=== PATIENT | male | born 1965 | race Caucasian/White ===

== ENCOUNTER 2016-12-12 01:28 | Emergency (ER) | payer OTHER ==
[~2016-12-12] VITALS: Ht 175.3 cm; Wt 95.5 kg
[~2016-12-12 01:28] MED LIST: AMLO10TA3 PO; ATOR80TA PO; CARV3.122 PO; CHOL100043 PO; FURO40TA4 PO; HYDR-3825 PO; HYDR-3940 PO; HYDR-656 PO; LISI-567 PO; NOVO7030I SUBQ; OMEP20CA11 PO; PARO30TA4 PO; PREG300C PO
[2016-12-12 01:31] VITALS: BP 105/64; PULSE 79; RESP 14; O2SAT 92
--- NOTE | 2016-12-12 01:36 | ED.REPORT ---
HPI-General Illness Date of Service Dec 12, 2016 ED Provider: Dr. Welsh Pt is a 51 year old male with a hx of type II DM and HTN presenting to the ED after an insulin overdose. He reports that he accidentally took too much insulin , 26 units twice. He forgot that he had taken his insulin and accidentally double dosed. Pt has been using insulin for the past 10 years. Denies any signs of infection. Nursing Notes Stated Complaint: TOOK TOO MUCH INSULIN Chief Complaint: General Complaint Nursing Notes Reviewed: Yes Allergies: Coded Allergies: No Known Allergies (Verified Allergy, Unknown, 03/16/15) Uncoded Allergies: SULFA (Allergy, Unknown, 12/12/16) Scheduled Amlodipine (Amlodipine) 10 Mg Tablet 10 MG PO DAILY Atorvastatin (Lipitor) 80 Mg Tablet 80 MG PO HS Carvedilol (Carvedilol) 3.125 Mg Tablet 3.125 MG PO BID Cholecalciferol (Vitamin D3) (Vitamin D) 1,000 Unit Tablet 4,000 UNIT PO DAILY Furosemide (Furosemide) 40 Mg Tablet 40 MG PO DAILY Hydralazine (Hydralazine) 50 Mg Tablet 50 MG PO BID Insulin Aspart (NovoLOG 70/30 U100 Insulin Vial) 100 Unit/Ml Vial 26 UNIT SUBQ HS Insulin Aspart (NovoLOG 70/30 U100 Insulin Vial) 100 Unit/Ml Vial 15 UNIT SUBQ AM Lisinopril (Lisinopril) 20 Mg Tablet 20 MG PO DAILY Omeprazole (Omeprazole) 20 Mg Capsule.dr 20 MG PO DAILY Paroxetine (Paroxetine) 30 Mg Tablet 30 MG PO DAILY Pregabalin (Lyrica) 300 Mg Capsule 300 MG PO BID Scheduled PRN Hydrocodone-Acetaminophen 7.5-325 mg (Hydrocodone-Acetaminophen 7.5-325 mg) 1 Each Tablet 1 TABLET PO QID PRN PRN For Pain hydrOXYzine Hcl (HydrOXYzine Hcl) 25 Mg Tablet 25 MG PO QID PRN PRN 00 General Time Seen by MD: 01:36 Chief Complaint Other (Accidental overdose) Hx Obtained From: Patient Arrived By: Walk-in Sudden in Onset?: Yes Onset Occurred: Just prior to arrival Symptom Duration: Since onset Caused by: Accidental Location: : Back Quality: Painful Severity: Current: Moderate Severity: Maximum: Moderate Recent Healthcare: No recent doctor visit, No recent hospitalization Similar Sx Previous: No Past Medical History Past Medical History Chronic back pain Reports: Diabetes mellitus, Hypertension Past Surgical History 18 screws in back Reports: Back/neck surgery Smoking History Current Every Day Smoker Social History Alcohol Use: Denies alcohol use Other Social History: Good social support Ambulatory Status Independent Review of Systems Full Review of Systems Constitutional: Denies: Fever GI: Denies: Nausea, Vomiting Musculoskeletal: Reports: Back pain Complete sys rev & neg: except as marked. Physical Exam Vital Signs Vital Signs Date Time Temp Pulse Resp B/P Pulse Ox O2 Delivery O2 Flow Rate FiO2 12/12/16 01:31 36.9 79 14 105/64 92 Room Air Initial VS: Reviewed Head / Eyes: Atraumatic, Normocephalic, PERRL ENT: Mucous membranes moist, Conjunctiva normal, No scleral icterus Respiratory: Breath sounds normal, Clear to auscultation, No respiratory distress Cardiovascular: Regular rate & rhythm, Heart sounds normal, Intact distal pulses Abdomen / GI: Soft, Non-tender, No guarding, No rebound, No distention Extremities: Vascular intact, Neuro intact, No swelling, No tenderness Skin: Warm, Dry, No cyanosis Neurologic: Alert, Oriented, Nonfocal Psychiatric: Mood/affect normal, Behavior normal, Normal thought content General/Constitutional: Awake, Alert Appearance / Presentation: Positive: Obese Re-Eval/Medical Decision Med Decision/Clinical Course 51-year-old with diabetes who accidentally took a double dose of his insulin. His sugars been stable here over a two hour wait. No indication of hypoglycemia. He will have a snack at home and is discharged in stable condition. Time of Eval: 03:29 Patient Status: Condition improved Re-Evaluation/Progress Note: Discussed lab results and plan for discharge. Pt understands and agrees with plan. Counseled Regarding: Diagnosis, Lab results, Need for follow-up, When/why to return to ED Discharge & Departure Primary Impression: Accidental overdose Encounter type: initial encounter Qualified Code: T50.901A - Poisoning by unspecified drugs, medicaments and biological substances, accidental ( unintentional), initial encounter Disposition: Home Discharge Condition All VS Reviewed: Yes Condition: Improved Patient Instructions: Diabetes Mellitus Type 2 in Adults (ED) Additional Instructions: Eat a snack when you get home. Follow-up with your doctor in the office Return for any immediate issues Referrals: Edgard Carranza MD (PCP) Scribe Attestation Portions of this note were transcribed by Aric Street. I, Dr. Welsh personally performed the history, physical exam and medical decision-making; I reviewed and confirmed the accuracy of the information in the transcribed note. Signed by: Eugene Carmichael, 12/12/2016 at 0334. copies to: Edgard Carranza MD, Christopher W MD Dec 12, 2016 01:[address] Dec 12, 2016 01:45
[2016-12-12] MEDS ORDERED: HYDROcodone-APAP 5-325 mg Tablet PO ONE (01:45)
== END 2016-12-12 03:32 | disposition home or self-care (01) ==
LOC: SED 01:28
DX: T38.3X1A Poisoning by insulin and oral hypoglycemic [antidiabetic] drugs, accidental (unintentional), initial encounter (principal); X58.XXXA Exposure to other specified factors, initial encounter; Y92.9 Unspecified place or not applicable; Y93.89 Activity, other specified; Y99.8 Other external cause status; E11.9 Type 2 diabetes mellitus without complications; I10 Essential (primary) hypertension; F17.200 Nicotine dependence, unspecified, uncomplicated; Z79.4 Long term (current) use of insulin; Z88.2 Allergy status to sulfonamides